=== PATIENT | female | born 1955 | race African-American/Black ===

== ENCOUNTER 2021-04-12 12:08 | Outpatient (CLI) | payer MEDICARE, MEDICAID ==
[2021-04-13 08:00] LABS: SARS-CoV-2 PCR by NAA Not Detected (NotDetected)
== END 2021-04-12 12:09 | disposition home or self-care (01) ==
LOC: CSHLAB 12:08
PROVIDERS: ATTEND Surgery
DX: Z20.822 Contact with and (suspected) exposure to COVID-19 (principal); C56.9 Malignant neoplasm of unspecified ovary; C78.5 Secondary malignant neoplasm of large intestine and rectum
CPT/HCPCS: U0003; U0005